=== PATIENT | male | born 1990 | race Caucasian/White ===

== ENCOUNTER 2025-05-08 12:18 | Emergency (ER) | payer SELFPAY ==
[~2025-05-08] VITALS: Ht 172.7 cm; Wt 73.0 kg
[2025-05-08 12:27] VITALS: TEMP 36.6; O2SAT 100
[2025-05-08] MEDS ORDERED: OCUFLX RIGHTEYE (12:57)
[2025-05-08] MEDS: FLUORESCEIN SODIUM 1MG/STRIP BOTHEYE ONE (12:58)
[2025-05-08] MEDS: TETRACAINE 0.5% OPHTH DROPS 4ML BOTHEYE ONE (12:58)
[2025-05-08 13:12] VITALS: BP 110/81; PULSE 65; RESP 12; O2SAT 100
== END 2025-05-08 13:06 | disposition home or self-care (01) ==
LOC: ER 12:18
DX: H57.11 Ocular pain, right eye (principal)
CPT/HCPCS: 99283